=== PATIENT | female | born 1940 | race Caucasian/White ===

== ENCOUNTER 2022-01-30 11:59 | Outpatient (CLI) | payer MEDICARE, OTHER | END 2022-01-30 12:00 | disposition home or self-care (01) | LOC: CSHMAMMO 11:59 | PROVIDERS: ATTEND Family Medicine | DX: Z12.31 Encounter for screening mammogram for malignant neoplasm of breast (principal) | CPT/HCPCS: 77063; 77067 ==

== ENCOUNTER 2023-03-15 08:10 | Outpatient (CLI) | payer MEDICARE | END 2023-03-15 08:11 | disposition home or self-care (01) | LOC: CSHMAMMO 08:10 | PROVIDERS: ATTEND Family Medicine | DX: Z12.31 Encounter for screening mammogram for malignant neoplasm of breast (principal) | CPT/HCPCS: 77063; 77067 ==

== ENCOUNTER 2023-04-23 10:27 | Outpatient (CLI) | payer MEDICARE, OTHER | END 2023-04-23 10:28 | disposition home or self-care (01) | LOC: CSHMAMMO 10:27 | PROVIDERS: ATTEND Family Medicine | DX: Z78.0 Asymptomatic menopausal state (principal) | CPT/HCPCS: 77080 ==

== ENCOUNTER 2024-03-16 08:22 | Outpatient (CLI) | payer MEDICARE | END 2024-03-16 08:23 | disposition home or self-care (01) | LOC: CSHMAMMO 08:22 | PROVIDERS: ATTEND Family Medicine | DX: Z12.31 Encounter for screening mammogram for malignant neoplasm of breast (principal) | CPT/HCPCS: 77063; 77067 ==